=== PATIENT | female | born 1960 | race Caucasian/White ===

== ENCOUNTER 2024-07-25 18:52 | Emergency (ER) | payer MEDICARE, OTHER ==
[~2024-07-25 18:52] MED LIST: CARISOPRODOL350 MG PO; NEXIUM40 MG PO; NORCO 10-325 T1 EACH PO; VITAMIN D350000 UNIT PO
[2024-07-25 19:09] VITALS: PULSE 83; RESP 18; TEMP 96.4
[2024-07-25] MEDS ORDERED: BACTRIM DS TAB1 EACH PO (22:46)
[2024-07-25 22:50] LABS: BODY FLUID APPEARANCE CLOUDY; BODY FLUID COLOR YELLOW; BODY FLUID TYPE SYNOVIAL; WBC,BODY FLUID 20696 cells/uL
[2024-07-25 22:51] LABS: RBC,BODY FLUID 15000 cells/uL
[2024-07-25 23:10] VITALS: BP 169/90; PULSE 82; RESP 18; TEMP 98; O2SAT 96
[2024-07-26 00:41] LABS: MONO/MACROPHG,BODY FLUID 5 %; NEUTROPHILS,BODY FLUID 90 %; OTHER CELLS,BODY FLUID 5 %
[2024-07-26 00:42] LABS: TOTAL CELLS COUNTED (DIFF) 100
== END 2024-07-25 23:10 | disposition home or self-care (01) ==
LOC: FSED 19:37
DX: M25.422 Effusion, left elbow (principal); M70.22 Olecranon bursitis, left elbow; R10.9 Unspecified abdominal pain
CPT/HCPCS: 20605; 36415; 74176; 80048; 81003; 85025; 87070; 87186; 87205; 89051; 89060; 99284; J0696